=== PATIENT | male | born 1955 | race Caucasian/White ===

== ENCOUNTER → 2019-08-14 | Outpatient (CLI) | payer MEDICARE ==
--- NOTE | 2019-08-19 13:06 | SLEEPCENT ---
DATE OF STUDY: 08/14/2019 ORDERED BY: Dr. Carreon Nocturnal polysomnography was performed for the titration of pressure therapy in this patient with obstructive sleep apnea syndrome and apnea-hypopnea index of 8.5. For testing a ResMed Air Fit F20 full face mask of medium size was used and 9 cm of water pressure were applied to the circuit and the lights were extinguished. 7 hours and 31 minutes of data were reviewed. There were 261 minutes of sleep identified. Sleep latency was prolonged at 135 minutes. REM latency was more so prolonged at 194 minutes. Sleep architecture was fair with 3 REM cycles noted. There were periods of wake resulting in reduced sleep efficiency of 58.8%. The patient's electrocardiogram showed what appeared to be atrial fibrillation with a controlled ventricular response rate of 50 beats per minute. Electroencephalogram (EEG) showed fairly normal waveforms for awake and sleep. Respiratory events were best palliated with C-PAP at a pressure +13. Remaining measures of sleep physiology were normal. IMPRESSION: Obstructive sleep apnea syndrome (G47.33). RECOMMENDATION: Nightly use of pressure therapy at 13 cm of water.
== END ==
LOC: M SLEEP 20:00
PROVIDERS: ATTEND Internal Medicine Pulmonary Disease
DX: G47.33 Obstructive sleep apnea (adult) (pediatric) (principal)

== ENCOUNTER → 2021-01-05 | Outpatient (CLI) | payer MEDICARE | LOC: M PLALAB 10:17 | PROVIDERS: ATTEND Psychiatry & Neurology Neurology | DX: M79.18 Myalgia, other site (principal) ==

== ENCOUNTER → 2021-01-18 | Outpatient (CLI) | payer MEDICARE ==
[2021-01-18 15:51] LABS: HEMOGLOBIN A1c 5.5 %
[2021-01-18 16:15] LABS: FOLATE > 24.0 NG/ML; FREE T4 1.21 NG/DL (0.76-1.46); FREE THYROXINE INDEX 4.2 % (1.4-3.8); RHEUMATOID FACTOR QUANT < 10.0 IU/ML (<15.0); T UPTAKE 37 % (33-40); THYROXINE (T4) 11.3 UG/DL (4.5-12.0); TOTAL PROTEIN 7.3 GM/DL (6.4-8.2); VITAMIN B12 LEVEL 563 PG/ML
[2021-01-19 12:01] LABS: ALBUMIN % 62.9 % (55.8-66.1); ALPHA-1-GLOBULIN % 3.7 % (2.9-4.9); ALPHA-2-GLOBULINS % 8.4 % (7.1-11.8); BETA-1-GLOBULINS % 6.1 % (4.7-7.2); BETA-2-GLOBULINS % 3.6 % (3.2-6.5)
[2021-01-19 12:02] LABS: ALBUMIN 4.59 GM/DL (3.29-5.55); ALPHA-1-GLOBULINS 0.27 GM/DL (0.17-0.41); ALPHA-2-GLOBULINS 0.61 GM/DL (0.42-0.99); BETA-1-GLOBULINS 0.45 GM/DL (0.28-0.60); BETA-2-GLOBULINS 0.26 GM/DL (0.19-0.55); GAMMA GLOBULIN % 15.3 % (11.1-18.8); GAMMA GLOBULINS 1.12 GM/DL (0.65-1.58)
[2021-01-19 12:13] LABS: IMMUNOTYPING SERUM IGM ABNORMAL (NORMAL); IMMUNOTYPING SERUM KAPPA ABNORMAL (NORMAL)
== END ==
LOC: M PLALAB 13:02
PROVIDERS: ATTEND Psychiatry & Neurology Neurology
DX: E11.9 Type 2 diabetes mellitus without complications (principal); E07.9 Disorder of thyroid, unspecified; G62.9 Polyneuropathy, unspecified

== ENCOUNTER → 2021-10-03 | Outpatient (CLI) | payer MEDICARE ==
[~2021-10-03] VITALS: Ht 185.4 cm; Wt 135.0 kg
[~2021-10-03] MED LIST: BISO1TAB18 PO; EQL50TAB2 PO; LISI5TAB11 PO; MULT1CAP16 PO; PREG25CA PO; VITA100093 PO; VITMTA PO; XARE20TA PO
[2021-10-03 15:21] VITALS: BP 141/84
== END ==
LOC: M PAL 14:59
PROVIDERS: ATTEND Nurse Practitioner Adult Health
DX: D47.2 Monoclonal gammopathy (principal); G62.9 Polyneuropathy, unspecified; R53.83 Other fatigue; G47.30 Sleep apnea, unspecified; I42.9 Cardiomyopathy, unspecified; J44.9 Chronic obstructive pulmonary disease, unspecified; I48.91 Unspecified atrial fibrillation; E66.01 Morbid (severe) obesity due to excess calories; Z95.0 Presence of cardiac pacemaker; Z66 Do not resuscitate; Z86.16 Personal history of COVID-19; Z79.899 Other long term (current) drug therapy; I34.0 Nonrheumatic mitral (valve) insufficiency; I36.1 Nonrheumatic tricuspid (valve) insufficiency; I37.1 Nonrheumatic pulmonary valve insufficiency; I10 Essential (primary) hypertension; M25.551 Pain in right hip; Z82.49 Family history of ischemic heart disease and other diseases of the circulatory system; Z87.891 Personal history of nicotine dependence; F43.21 Adjustment disorder with depressed mood; U09.9 Post COVID-19 condition, unspecified; M79.10 Myalgia, unspecified site; Z51.5 Encounter for palliative care

== ENCOUNTER → 2022-07-24 | Outpatient (CLI) | payer MEDICARE ==
[~2022-07-24] VITALS: Ht 182.9 cm; Wt 136.9 kg
[~2022-07-24] MED LIST changes: +APPLTAB3 PO; +LOSA25TA13 PO
[2022-07-24 12:57] VITALS: BP 129/80
== END ==
LOC: M PAL 12:53
PROVIDERS: ATTEND Nurse Practitioner Adult Health
DX: D47.2 Monoclonal gammopathy (principal); Z51.5 Encounter for palliative care; F43.23 Adjustment disorder with mixed anxiety and depressed mood; G62.9 Polyneuropathy, unspecified; R53.83 Other fatigue; J43.9 Emphysema, unspecified; G47.30 Sleep apnea, unspecified; I42.9 Cardiomyopathy, unspecified; Z95.820 Peripheral vascular angioplasty status with implants and grafts; Z66 Do not resuscitate; Z79.899 Other long term (current) drug therapy; I48.91 Unspecified atrial fibrillation; Z87.891 Personal history of nicotine dependence; Z95.0 Presence of cardiac pacemaker

== ENCOUNTER → 2022-10-24 | Outpatient (CLI) | payer MEDICARE ==
[~2022-10-24] VITALS: Ht 182.9 cm; Wt 139.9 kg
[2022-10-24 09:33] VITALS: BP 126/82; O2SAT 96
== END ==
LOC: M PAL 09:23
PROVIDERS: ATTEND Nurse Practitioner Adult Health
DX: D47.2 Monoclonal gammopathy (principal); J44.9 Chronic obstructive pulmonary disease, unspecified; I42.9 Cardiomyopathy, unspecified; I48.91 Unspecified atrial fibrillation; R53.83 Other fatigue; F43.21 Adjustment disorder with depressed mood; E66.01 Morbid (severe) obesity due to excess calories; G47.30 Sleep apnea, unspecified; G62.9 Polyneuropathy, unspecified; Z51.5 Encounter for palliative care; Z95.0 Presence of cardiac pacemaker; U09.9 Post COVID-19 condition, unspecified; Z66 Do not resuscitate; Z79.01 Long term (current) use of anticoagulants; Z79.899 Other long term (current) drug therapy; Z82.49 Family history of ischemic heart disease and other diseases of the circulatory system; Z87.891 Personal history of nicotine dependence; Z99.89 Dependence on other enabling machines and devices

== ENCOUNTER → 2023-12-11 | Outpatient (CLI) | payer MEDICARE ==
[~2023-12-11] MED LIST changes: +AMIT10TA7
== END ==
LOC: M SLEEP 20:00
PROVIDERS: ATTEND Internal Medicine Pulmonary Disease
DX: G47.33 Obstructive sleep apnea (adult) (pediatric) (principal)